=== PATIENT | male | born 1980 | race Caucasian/White ===

== ENCOUNTER 2017-03-02 15:40 | Emergency (ER) | payer MEDICAID, OTHER ==
[2017-03-02 15:45] VITALS: TEMP 99.4
--- NOTE | 2017-03-02 16:34 | ED PDOC ---
HPI: Psych/Substance Abuse <Loi Carrizales - Last Filed: 03/02/17 19:13> Chief Complaint (Provider): Substance abuse ED Caveat: Uncooperative History Per: EMS History/Exam Limitations: intoxication Modifying Factor(s): Other (PCP) Additional Complaint(s): 36yo male, brought in by EMS after he was noted to be acting bizarrely [place] a [place] station. At present, patient is tearful upon interview and admits to PCP and "other drugs" usage. He is refusing to answer other questions so a full HPI and ROS is unavailable. <Subha Ji F - Last Filed: 03/09/17 12:18> Time Seen by Provider: 03/02/17 15:56 Chief Complaint (Nursing): Substance Abuse Past Medical History Vital Signs: Last Vital Signs Temp 99.4 F 03/02/17 15:42 Pulse 90 03/02/17 17:49 Resp 18 03/02/17 17:49 BP 160/90 H 03/02/17 17:49 Pulse Ox 97 03/02/17 19:13 <Loi Carrizales - Last Filed: 03/02/17 19:13> Reviewed: Historical Data, Nursing Documentation, Vital Signs Vital Signs: Last Vital Signs Temp 99.4 F 03/02/17 15:42 Pulse 96 H 03/02/17 15:42 Resp 16 03/02/17 15:42 BP 138/90 03/02/17 15:42 Pulse Ox 97 03/02/17 15:42 - Family History Family History: States: Unknown Family Hx <Subha Ji F - Last Filed: 03/09/17 12:18> - Home Medications Home Medications: Ambulatory Orders Medication Instructions Recorded Unobtainable 03/03/17 - Allergies Allergies/Adverse Reactions: Allergies Allergy/AdvReac Type Severity Reaction Status Date / Time No Known Allergies Allergy Unverified 03/03/17 21:57 Review of Systems Review Of Systems: ROS cannot be obtained secondary to pt's inabilty to answer questions. (patient refusing to answer questions) <Subha Ji F - Last Filed: 03/09/17 12:18> Physical Exam - Reviewed Nursing Documentation Reviewed: Yes Vital Signs Reviewed: Yes - Physical Exam Extremity: Positive for: Normal ROM (moving all extremities) Neurologic/Psych: Positive for: Alert, Oriented (oriented x 1; patient following commands and responsive to verbal stimuli). Negative for: Motor/ Sensory Deficits <Subha Ji - Last Filed: 03/09/17 12:18> - Laboratory Results Result Diagrams: 03/02/17 16:37 03/02/17 16:37 <Loi Carrizales - Last Filed: 03/02/17 19:13> - Laboratory Results Result Diagrams: 03/02/17 16:37 03/02/17 16:37 - ECG O2 Sat by Pulse Oximetry: 97 (RA) Pulse Ox Interpretation: Normal <Subha Ji Ravin - Last Filed: 03/09/17 12:18> Medical Decision Making Medical Decision Making: Time: 1600 Impression: Substance abuse Plan: -- Labs -- Urinalysis Reassess Scribe Attestation: Documented by Antonette Chang acting as a scribe for Subha Ji MD. Provider Attestation: All medical record entries made by the Scribe were at my direction and personally dictated by me. I have reviewed the chart and agree that the record accurately reflects my personal performance of the history, physical exam, medical decision making, and the department course for this patient. I have also personally directed, reviewed, and agree with the discharge instructions and disposition. <Subha Ji - Last Filed: 03/09/17 12:18> Disposition <Loi Carrizales - Last Filed: 03/02/17 19:13> - Disposition Disposition: Transfer of Care Disposition Time: 19:00 Patient Signed Over To: Loi Carrizales <Subha Ji - Last Filed: 03/09/17 12:18> - Clinical Impression Clinical Impression: Substance abuse - Disposition Referrals: [facility] [Outside] Condition: IMPROVED Instructions: Depression (DC), Suicide Prevention for Adults (ED), Polysubstance Abuse (ED) Forms: [employer] ([place])
[2017-03-02 16:44] LABS: BASO % 0.6 % (0.0-2.0); EOS # 0.2 K/uL (0.0-0.7); HEMOGLOBIN 15.4 g/dL (12.0-18.0); LYMPH # 1.8 K/uL (1.0-4.3); LYMPH % 22.9 % (20.0-40.0); MEAN CELL VOLUME 87.9 fl (80.0-94.0); MEAN CORPUSCULAR HEMOGLOBIN 28.6 pg (27.0-31.0); MEAN CORPUSCULAR HGB CONC 32.6 g/dL (33.0-37.0); MEAN PLATELET VOLUME 9.4 fl (7.2-11.7); MONO # 0.6 K/uL (0.0-0.8); MONO % 7.8 % (0.0-10.0); NEUT # 5.2 K/uL (1.8-7.0); NEUT % 65.7 % (50.0-75.0); NRBC % 0.3 % (0.0-0.0); RBC 5.37 Mil/uL (4.40-5.90); RED CELL DISTRIBUTION WIDTH 14.2 % (11.5-14.5); WHITE BLOOD COUNT 7.9 K/uL (4.8-10.8)
[2017-03-02 16:51] LABS: ALB/GLOB RATIO 1.4 (1.0-2.1); ALBUMIN 4.6 g/dL (3.5-5.0); ALT/SGPT 113 U/L (21-72); AST/SGOT 50 U/L (17-59); BLOOD UREA NITROGEN 13 mg/dl (9-20); CALCIUM 10.2 mg/dL (8.4-10.2); GFR AFRICAN-AMERICAN > 60; GFR NON-AFRICAN AMERICAN > 60
[2017-03-02 17:50] VITALS: BP 160/90; PULSE 90; RESP 18
[2017-03-02 18:00] LABS: SQUAMOUS EPITHIAL < 1 /hpf (0-5); URINE BACTERIA RARE (<OCC); URINE BILIRUBIN NEGATIVE (NEGATIVE); URINE BLOOD NEGATIVE (NEGATIVE); URINE CLARITY CLEAR (Clear); URINE COLOR YELLOW (YELLOW); URINE GLUCOSE (UA) NEG (Normal); URINE LEUKOCYTE ESTERASE NEG Leu/uL (Negative); URINE NITRATE NEGATIVE (NEGATIVE); URINE PROTEIN NEGATIVE (NEGATIVE); URINE UROBILINOGEN 0.2-1.0 mg/dL (0.2-1.0)
[2017-03-02 18:18] LABS: BARBITURATES, UR NEGATIVE (NEGATIVE); BENZODIAZEPINES, UR NEGATIVE (NEGATIVE); OPIATES, UR NEGATIVE (NEGATIVE)
[2017-03-02 18:20] LABS: PHENCYCLIDINE, UR POSITIVE (NEGATIVE)
[2017-03-02 19:13] VITALS: O2SAT 97
--- NOTE | 2017-03-02 19:16 | ED PDOC ---
- Laboratory Results Result Diagrams: 03/02/17 16:37 03/02/17 16:37 - ECG O2 Sat by Pulse Oximetry: 97 (RA) Pulse Ox Interpretation: Normal Medical Decision Making Medical Decision Makin:00 -Patient signed out to me by Subha Ji. Pending crisis evaluation. 20:26 -Patient cleared by Dr. Lopez with diagnosis of substance abuse. Patient is now awake and alert, walking with steady gait. Scribe Attestation: Documented by Alie Malave, acting as a scribe for Loi Carrizales MD Provider Scribe Attestation: All medical record entries made by the Scribe were at my direction and personally dictated by me. I have reviewed the chart and agree that the record accurately reflects my personal performance of the history, physical exam, medical decision making, and the department course for this patient. I have also personally directed, reviewed, and agree with the discharge instructions and disposition. Disposition - Clinical Impression Clinical Impression: Substance abuse - POA Present On Arrival: None - Disposition Referrals: [facility] [Outside] Disposition: Routine/Home Disposition Time: 20:28 Condition: IMPROVED Instructions: Polysubstance Abuse (ED), Suicide Prevention for Adults (ED), Depression (DC) Forms: [employer] ([place])
== END 2017-03-02 20:53 | disposition home or self-care (01) ==
LOC: H.ER 15:40
DX: F19.10 Other psychoactive substance abuse, uncomplicated (principal)

== ENCOUNTER 2017-05-10 10:01 | Emergency (ER) | payer MEDICAID ==
[2017-05-10 10:09] VITALS: BMI 31.0
[2017-05-10 10:12] VITALS: BP 163/97; PULSE 110; RESP 16; TEMP 99.9; O2SAT 96
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
== END 2017-05-10 10:39 | disposition home or self-care (01) ==
LOC: H.ER 10:01
DX: F31.9 Bipolar disorder, unspecified (principal)